=== PATIENT | female | born 1975 | race Caucasian/White ===

== ENCOUNTER 2017-10-13 21:57 | Emergency (ER) | payer MEDICAID ==
[~2017-10-13] VITALS: Ht 165.1 cm; Wt 62.3 kg
[~2017-10-13 21:57] MED LIST: CARB200T3 PO; LEVE500T53 PO; LISI-167 PO
[2017-10-13 21:59] VITALS: BP 151/93
[2017-10-13] MEDS ORDERED: SODIUM CHLORIDE FLUSH 10ML SYR IVF ONE (23:30)
[2017-10-13] MEDS ORDERED: CEFTRIAXONE PMX 1GM/50ML 50 ML IV ONE (23:30)
[2017-10-13] MEDS ORDERED: MUPIROCIN OINT 2%, 22GM TP ONE (23:30)
[2017-10-13] MEDS ORDERED: CEFTRIAXONE PMX 1GM/50ML 50 ML ONE (23:43)
[2017-10-13 23:54] LABS: BASOPHILS # (AUTO) 0.03 x10^3/uL (0-0.1); BASOPHILS % (AUTO) 0 % (0-1); EOSINOPHILS # (AUTO) 0.13 x10^3/uL (0-0.4); EOSINOPHILS % (AUTO) 2 % (1-7); LYMPHOCYTES # (AUTO) 1.88 x10^3/uL (1-3.4); LYMPHOCYTES % (AUTO) 21 % (22-44); MD NO; MEAN CORPUSCULAR HEMOGLOBIN 32.7 pg (27.0-34.8); MEAN CORPUSCULAR HGB CONC 33.5 g/dL (32.4-35.8); MEAN CORPUSCULAR VOLUME 97.6 fL (80-100); MEAN PLATELET VOLUME 7.3 fL (7.4-10.4); MONOCYTES # (AUTO) 0.52 x10^3/uL (0.2-0.8); MONOCYTES % (AUTO) 6 % (2-9); NEUTROPHILS # (AUTO) 6.23 x10^3/uL (1.8-6.8); NEUTROPHILS % (AUTO) 71 % (42-75); PLATELET COUNT 285 x10^3/uL (130-400); RED BLOOD COUNT 4.87 x10^6/uL (3.82-5.3); RED CELL DISTRIBUTION WIDTH 14.4 % (9.6-15.2)
[2017-10-14 00:06] LABS: ANION GAP 11 mmol/L (5-15); CALCIUM 9.5 mg/dL (8.5-10.1); CHLORIDE 103 mmol/L (98-107); CREATININE 0.62 mg/dL (0.55-1.02)
[2017-10-14] MEDS ORDERED: BACITRACIN ZINC OINT 500U/GM, 0.9 GM ONE (00:59)
== END 2017-10-14 01:58 | disposition home or self-care (01) ==
LOC: ED 23:59
DX: L03.116 Cellulitis of left lower limb (principal); F17.210 Nicotine dependence, cigarettes, uncomplicated
CPT/HCPCS: 36415; 80048; 82040; 83605; 84145; 85025; 87040; 96365; 99284; J0696

== ENCOUNTER 2019-07-21 13:30 | Emergency (ER) | payer MEDICAID ==
[~2019-07-21] VITALS: Ht 162.6 cm; Wt 76.0 kg
[2019-07-21 13:39] VITALS: BP 128/104
--- NOTE | 2019-07-21 15:29 | NUR ---
Crutches refused. Knee immobilizer applied to RLE. Pt ryanne. well. Patient given discharge instructions and they have confirmed that they understand the instructions. Patient ambulatory with steady gait.
== END 2019-07-21 15:31 | disposition home or self-care (01) ==
LOC: ED 15:30
DX: S83.91XA Sprain of unspecified site of right knee, initial encounter (principal); G40.909 Epilepsy, unspecified, not intractable, without status epilepticus; F17.200 Nicotine dependence, unspecified, uncomplicated; X50.1XXA Overexertion from prolonged static or awkward postures, initial encounter; Y93.89 Activity, other specified; Y92.009 Unspecified place in unspecified non-institutional (private) residence as the place of occurrence of the external cause; Y99.8 Other external cause status
CPT/HCPCS: 29505; 99283

== ENCOUNTER 2019-08-17 22:28 | Emergency (ER) | payer MEDICAID ==
[~2019-08-17] VITALS: Ht 167.6 cm; Wt 75.1 kg
[2019-08-17 22:30] VITALS: BP 142/87
[2019-08-17] MEDS ORDERED: DIPHENHYDRAMINE 25 MG CAPSULE ONE (23:25)
[2019-08-17] MEDS ORDERED: ACETAMINOPHEN 325 MG TABLET ONE (23:25)
[2019-08-17] MEDS ORDERED: KETOROLAC 60 MG/2 ML ONE (23:25)
[2019-08-17] MEDS ORDERED: DIPHENHYDRAMINE 25 MG CAPSULE PO ONE (23:30)
[2019-08-17] MEDS ORDERED: ACETAMINOPHEN 325 MG TABLET PO ONE (23:30)
[2019-08-17] MEDS ORDERED: KETOROLAC 30 MG/1 ML IM ONE (23:30)
[2019-08-17 23:46] LABS: RAPID INFLUENZA A Negative (Negative); RAPID INFLUENZA B Negative (Negative)
== END 2019-08-18 00:12 | disposition home or self-care (01) ==
LOC: ED 23:28
DX: B34.9 Viral infection, unspecified (principal); M79.10 Myalgia, unspecified site; G40.909 Epilepsy, unspecified, not intractable, without status epilepticus
CPT/HCPCS: 71046; 87400; 96372; 99284; J1885; Q0163